=== PATIENT | female | born 1975 | race Caucasian/White ===

== ENCOUNTER → 2020-06-26 | Outpatient (CLI) | payer OTHER ==
--- NOTE | 2020-06-26 12:07 | ECHOF ---
Referral Reason:R06.02 SOB; R07.9 Chest pain R94.31 abn EKG MEASUREMENTS -------- HEIGHT: 175.3 cm WEIGHT: 70.3 kg BP: RVIDd: 3.6 cm (< 3.3) IVSd: 1.0 cm (0.6 - 1.1) LVIDd: 4.0 cm (3.9 - 5.3) LVPWd: 1.2 cm (0.6 - 1.1) IVSs: 1.3 cm LVIDs: 2.8 cm LVPWs: 1.7 cm LAESV Index (A-L): 17.64 ml/m Ao Diam: 2.8 cm (2.0 - 3.7) AV Cusp: 1.7 cm (1.5 - 2.6) MV EXCURSION: 15.225 mm (> 18.000) MV EF SLOPE: 97 mm/s (70 - 150) EPSS: 0.4 cm MV E Keron: 1.09 m/s MV DecT: 163 ms MV A Keron: 0.81 m/s MV E/A Ratio: 1.34 RAP: 5.00 mmHg RVSP: 27.67 mmHg FINDINGS -------- Sinus rhythm. This was a technically adequate study. The left ventricular size is normal. There is borderline concentric left ventricular hypertrophy. Overall left ventricular systolic function is normal with, an EF between 55 - 60 %. The diastolic filling pattern is normal for the age of the patient 10.79. The right ventricle is mildly enlarged. Normal LA size by volume 22+/-6 ml/m2. The right atrial size is normal. Interatrial and interventricular septum intact. The aortic valve is trileaflet, and appears structurally normal. No aortic stenosis or regurgitation. The mitral valve is normal. There is trace mitral regurgitation. Mild tricuspid regurgitation present. Right ventricular systolic pressure is normal at < 35 mmHg. The right ventricular systolic pressure, as measured by Doppler, is 27.67mmHg. There is no pulmonic regurgitation present. The aortic root size is normal. The inferior vena cava is mildly dilated. There is no pericardial effusion. CONCLUSIONS -------- 1. There is borderline concentric left ventricular hypertrophy. 2. Overall left ventricular systolic function is normal with, an EF between 55 - 60 %. 3. The diastolic filling pattern is normal for the age of the patient 10.79 4. The right ventricle is mildly enlarged. 5. Normal LA size by volume 22+/-6 ml/m2. 6. The aortic valve is trileaflet, and appears structurally normal. No aortic stenosis or regurgitati on. 7. There is trace mitral regurgitation. 8. Mild tricuspid regurgitation present. 9. The inferior vena cava is mildly dilated. 10. There is no pericardial effusion. HISTORIOGRAPHER: Lucretia Pereira RDCS
== END | disposition home or self-care (01) ==
LOC: RADECHMAIN 11:22
PROVIDERS: ATTEND Family Medicine
DX: I07.1 Rheumatic tricuspid insufficiency (principal)
CPT/HCPCS: 93306

== ENCOUNTER → 2021-12-07 | Outpatient (CLI) | payer OTHER ==
--- NOTE | 2021-12-07 14:18 | US ---
EXAMINATION TYPE: US thyroid st tissue head/neck DATE OF EXAM: 12/07/2021 COMPARISON: NONE CLINICAL HISTORY: R22.0 Swelling r side neck. GLAND SIZE: Right Lobe: 5.2 x 2.1 x 1.4 cm Overall Parenchyma: homogenous Left Lobe: cm Overall Parenchyma: 5.1 x 2.2 x1.9cm Isthmus Thickness: 0.6 cm NODULES RIGHT: # of nodules measured on right: 3 1. 0.7 X 0.5 x 0.8 cm, lower, solid or almost completely solid, hyperechoic nodule, which is wider than tall, with smooth margins, without echogenic foci. No prior 2. 0.7 X 0.5 x 0.9 cm, lower, solid or almost completely solid, hypoechoic nodule, which is wider t pritchard tall, with smooth margins, without echogenic foci. No prior 3. 0.6 X 0.4 x 0.6 cm, lower, solid or almost completely solid, isoechoic nodule, which is wider th an tall, with smooth calcified margins, without echogenic foci. No prior LEFT: # of nodules measured on left: 1. 1.4 X 0.8 x 1.4 cm, mid , solid or almost completely solid, isoechoic nodule, which is wider ana m n tall, with smooth margins, without echogenic foci. No prior ISTHMUS: # of nodules measured in the isthmus: 1 1. 0.8 X 0.4 x 0.8 cm solid or almost completely solid, isoechoic nodule, which is wider than tall, with smooth margins, without echogenic foci. No prior Bilateral neck scanned, no evidence of lymphadenopathy. IMPRESSION: Nonspecific thyroid nodularity.
--- NOTE | 2021-12-11 08:54 | MM ---
Reason for exam: screening (asymptomatic). Baseline mammogram. Physical Findings: Nurse did not find any significant physical abnormalities on exam. MG Screening Mammo w CAD Bilateral CC and MLO view(s) were taken. There are scattered fibroglandular densities. Right upper outer quadrant nodularity. Further evaluation recommended. ASSESSMENT: Incomplete: need additional imaging evaluation, BI-RAD 0 RECOMMENDATION: Special view mammogram of the right breast. (3D) If lesion persists on supplemental views, image directed ultrasound is recommended. [facility] will attempt to contact patient to return for supplemental views and ultrasound if indicated.
== END | disposition home or self-care (01) ==
LOC: RADUSWWP 13:35
PROVIDERS: ATTEND Family Medicine
DX: Z12.31 Encounter for screening mammogram for malignant neoplasm of breast (principal); E04.2 Nontoxic multinodular goiter
CPT/HCPCS: 76536; 77067

== ENCOUNTER → 2021-12-18 | Outpatient (CLI) | payer OTHER ==
--- NOTE | 2021-12-18 10:08 | MM ---
Reason for exam: additional evaluation requested from abnormal screening. Last mammogram was performed less than 1 month ago. History: Family history of breast cancer in maternal grandmother. Physical Findings: Breast exam preformed at baseline screening. MG 3D Work Up W/Cad RT Spot compression CC, spot compression MLO, and LM view(s) were taken of the right breast. Prior study comparison: December 07, 2021, bilateral MG screening mammo w CAD. The breast tissue is heterogeneously dense. This may lower the sensitivity of mammography. There is no discrete abnormality persists on additional views. These results were verbally communicated with the patient and result sheet given to the patient on 12/18/21. ASSESSMENT: Negative, BI-RAD 1 RECOMMENDATION: Return to routine screening mammogram schedule for both breasts.
== END | disposition home or self-care (01) ==
LOC: RADMAMWWP 08:49
PROVIDERS: ATTEND Family Medicine
DX: R92.2 Inconclusive mammogram (principal); Z80.3 Family history of malignant neoplasm of breast
CPT/HCPCS: 77065; G0279; 77061

== ENCOUNTER → 2023-07-14 | Outpatient (CLI) | payer OTHER ==
--- NOTE | 2023-07-14 12:19 | XR ---
EXAMINATION TYPE: XR chest 2V DATE OF EXAM: 07/14/2023 12:14 PM COMPARISON: None TECHNIQUE: XR chest 2V Frontal and lateral views of the chest. CLINICAL INDICATION:Female, 48 years old with history of R05.3 CHRONIC COUGH; FINDINGS: Lungs/Pleura: There is no evidence of pleural effusion, focal consolidation, or pneumothorax. Pulmonary vascularity: Unremarkable. Heart/mediastinum: Cardiomediastinal silhouette is unremarkable. Musculoskeletal: No acute osseous pathology. IMPRESSION: No acute cardiopulmonary disease/process.
== END | disposition home or self-care (01) ==
LOC: RADXRMAIN 12:05
PROVIDERS: ATTEND Family Medicine
DX: R05.3 Chronic cough (principal)
CPT/HCPCS: 71046

== ENCOUNTER 2024-09-24 08:38 | Day surgery (SDC) | payer OTHER ==
[~2024-09-24 08:38] MED LIST: HYDROmorphone 0.5 MG/0.5 ML SYRINGE IVP PRN; MIDAZOLAM 2 MG/2 ML VIAL IV PRN; Pre Op ABX Message 1 EACH MISC MISCELLANE ONE; SCOPOLAMINE 1 MG/72 HR PATCH TRANSDERM ONE
[2024-09-24] MEDS: IV FLUID CONTINUATION 1,000 ML IV ONE (09:15)
[2024-09-24] MEDS: ACETAMINOPHEN TAB 500 MG TAB PO PRN (09:19)
[2024-09-24] MEDS: ONDANSETRON 4 MG/2 ML VIAL IVP ONE (09:19)
[2024-09-24] MEDS: LACTATED RINGERS 1,000 ML IV SCH (09:19)
[2024-09-24] MEDS: DEXAMETHASONE SOD PHOSPHATE 4 MG/ML 1 ML VIAL IV ONE (09:20)
[2024-09-24] MEDS: HEPARIN SODIUM,PORCINE 5,000 UNIT/ML 1 ML VIAL SQ PRN (09:20)
--- NOTE | 2024-09-24 09:34 | P.GSHP ---
History of Present Illness H&P Date: 09/24/24 Chief Complaint: Colon cancer 49-year-old female here for Port-A-Cath placement. Patient to start chemotherapy in the next 1 to 2 weeks. Patient recently diagnosed with colon cancer metastatic to liver. She has not had a port previously. Past Medical History Past Medical History: Atrial Fibrillation Additional Past Medical History / Comment(s): colon CA with mets liver,dx May 2024-starting chemo-during colonoscopy punctured mass/bowel then transferred to [place] for remair,abdominal pain,b/p runs low History of Any Multi-Drug Resistant Organisms: None Reported Past Surgical History: Bowel Resection, Section Additional Past Surgical History / Comment(s): bowel resection in May 2024,colonoscopy,tubal preg Past Anesthesia/Blood Transfusion Reactions: No Reported Reaction Additional Past Anesthesia/Blood Transfusion Reaction / Comment(s): no hx blood transfusion Smoking Status: Former smoker - Past Family History Mother Family Medical History: No Reported History Medications and Allergies Home Medications Medication Instructions Recorded Confirmed Type Amiodarone HCl [Pacerone] 200 mg PO BID 09/22/24 09/22/24 History Apixaban [Eliquis] 5 mg PO BID 09/22/24 09/22/24 History HYDROcodone/APAP 10-325MG [[place] 1 tab PO Q4HR PRN 09/22/24 09/24/24 History 10-325] Metoclopramide HCl [Reglan] 10 mg PO BID 09/22/24 09/22/24 History Omeprazole 20 mg PO QAM 09/22/24 09/22/24 History Senna-Time 1 dose PO DAILY 09/22/24 09/22/24 History HYDROcodone/APAP 5-325MG [[place] 1 tab PO Q6HR PRN 3 Days #10 tab 09/24/24 Rx 5-325] Allergies Allergy/AdvReac Type Severity Reaction Status Date / Time No Known Allergies Allergy Verified 09/24/24 09:11 Surgical - Exam Vital Signs Temp Pulse Resp BP Pulse Ox 97.6 F 78 16 107/72 97 09/24/24 09:16 09/24/24 09:16 09/24/24 09:16 09/24/24 09:16 09/24/24 09:16 Physical exam: General: Thin appearing young female in no distress HEENT: Normocephalic, sclerae nonicteric Abdomen: Nontender, nondistended Extremities: No edema Neuro: Alert and oriented Assessment and Plan (1) Colon cancer Narrative/Plan: Will proceed with Port-A-Cath placement at this time. Risks of bleeding, infection, DVT, pneumothorax, catheter malfunction, anesthesia related complications were discussed. The patient understands and wishes to proceed. Current Visit: Yes Status: Acute Code(s): C18.9 - MALIGNANT NEOPLASM OF COLON, UNSPECIFIED SNOMED Code(s): 303089107
[2024-09-24] MEDS ORDERED: PHENYLEPHRINE-0.9% NACL SYG 1,000 MCG/10 ML SYRINGE ONE (09:42)
[2024-09-24] MEDS ORDERED: MIDAZOLAM 2 MG/2 ML VIAL ONE (09:42)
[2024-09-24] MEDS ORDERED: GLYCOPYRROLATE 0.2 MG/ML 2 ML VIAL ONE (09:42)
[2024-09-24] MEDS ORDERED: LIDOCAINE 1% INJ 10MG/ML (20 ML MDV) ONE (09:42)
[2024-09-24] MEDS ORDERED: fentaNYL (PF) 50 MCG/ML 2 ML AMP ONE (09:42)
[2024-09-24] MEDS ORDERED: ceFAZolin 1 GM/50 ML BAG (PMX) ONE (09:42)
[2024-09-24] MEDS ORDERED: PROPOFOL 10 MG/ML 20 ML VIAL IV ONE (09:42)
[2024-09-24] MEDS: SODIUM CHLORIDE 0.9% 50 ML with ceFAZolin 2,000 MG IV ONE (09:47)
[2024-09-24] MEDS: BUPIVACAINE (PF) 0.25% 30 ML VIAL SQ ONE ×2 (10:16)
[2024-09-24] MEDS ORDERED: ACETAMINOPHEN TAB 325 MG TAB PO PRN (10:43)
[2024-09-24] MEDS ORDERED: NALOXONE 0.4 MG/ML 1 ML VIAL IV PRN (10:43)
--- NOTE | 2024-09-24 10:47 | P.OP ---
Date of Procedure: 09/24/24 Procedure(s) Performed: PREOPERATIVE DIAGNOSIS: Colon cancer POSTOPERATIVE DIAGNOSIS: Same PROCEDURE: Port-A-Cath placement with fluoroscopic and ultrasound guidance SURGEON: Adal EBL: Minimal ANESTHESIA: General COMPLICATIONS: None OPERATIVE PROCEDURE: Patient was brought and placed on the operative table in the supine position. The patient was placed under general anesthesia at that time. The chest and neck were prepped and draped in usual sterile fashion. The ultrasound probe was used to identify the location of the right internal jugular vein. The skin was localized with lidocaine. The Seldinger needle was advanced into the IJ under ultrasound guidance. The wire was advanced through the needle under fluoroscopic guidance into the superior vena cava. A port pocket was created in the right infraclavicular location. The catheter was tunneled from the wire entrance site to the port pocket. The port was then connected to the catheter. The dilator introducer was threaded over the guidewire. The guidewire and dilator were then removed. The catheter was advanced through the introducer and introducer was then removed. The tip was seen to be in the right atrial junction via fluoroscopy. A picture of the radiograph showing the tip of the catheter was taken. Port was flushed with both saline and a Hep-Lock solution. There was good flow both in and out of the port. The port was sutured in underlying tissues using 3-0 silk sutures. The subcutaneous tissues were reapproximated using 3-0 Vicryl sutures and the skin at both locations using 4-0 Monocryl sutures. Skin glue and sterile dressings then applied. DISPOSITION: Stable to recovery room
[2024-09-24 10:51] VITALS: TEMP 97.1
--- NOTE | 2024-09-24 11:02 | FL ---
Fluoroscopy History: Port-A-Cath Insertion Port a cath insert with 3.3 sec fluoro time .0919 DAP 1 image saved LC/AB [facility], , 09/24/2024 11:00 AM
--- NOTE | 2024-09-24 11:10 | XR ---
EXAMINATION TYPE: XR chest 1V confirm line plcnh DATE OF EXAM: 09/24/2024 CLINICAL HISTORY: Line placement TECHNIQUE: Single frontal view of the chest is obtained. COMPARISON: 07/14/2023 FINDINGS: The port catheter with its distal tip overlying the SVC. No evidence for pneumothorax. Ther e is no focal air space opacity, pleural effusion, or pneumothorax seen. The cardiac silhouette size is within normal limits. The osseous structures are intact. IMPRESSION: No acute process. [facility], , 09/24/2024 11:07 AM
[2024-09-24] MEDS: LACTATED RINGERS 1,000 ML IV ONE (12:30)
[2024-09-24] MEDS: HYDROcodone/APAP 5-325MG 1 EACH TAB PO PRN (13:35)
[2024-09-24 14:43] VITALS: BP 94/64; PULSE 64; RESP 18
== END 2024-09-24 15:04 | disposition home or self-care (01) ==
LOC: OR 08:38
PROVIDERS: ATTEND Surgery
DX: C18.9 Malignant neoplasm of colon, unspecified (principal); C78.7 Secondary malignant neoplasm of liver and intrahepatic bile duct; I48.91 Unspecified atrial fibrillation; Z79.01 Long term (current) use of anticoagulants; Z87.891 Personal history of nicotine dependence; K21.9 Gastro-esophageal reflux disease without esophagitis
CPT/HCPCS: 77001; 36561; J1644; J1100; J2405; J0690; J1642; J0665; 81025

== ENCOUNTER → 2025-03-15 | Outpatient (CLI) | payer OTHER ==
[2025-03-15 15:00] LABS: Blood Urea Nitrogen 8 mg/dL (7-17)
[2025-03-15 15:01] LABS: African American GFR (CKD) >90 (>60 ml/min/1.73 sqM); Non-African American GFR(CKD) >90 (>60 ml/min/1.73 sqM)
--- NOTE | 2025-03-16 07:31 | CT ---
EXAMINATION TYPE: CT ChestAbdPelvis w con DATE OF EXAM: 03/15/2025 4:08 PM COMPARISON: 11/03/2024. CLINICAL INDICATION: Female, 49 years old with history of C18.9 MALIGNANT NEOPLASM OF COLON, UNSPECIF IED; PHH, COLON CA Technique: CT ChestAbdPelvis w con; Multiple axial images were obtained. Two-dimensional coronal and sagittal reconstructions were obtained. Contrast used:100 ml mL of Isovue 300 with IV Contrast, (None if empty) Oral contrast used: with Oral Contrast CT DLP: 848 mGycm, Automated exposure control for dose reduction was used. Findings: CHEST: LUNGS/ PLEURA: No focal consolidation, pneumothorax or pleural effusion. AIRWAY: Patent and unremarkable. HEART: Size within normal limits. No significant coronary artery calcifications. MEDIASTINUM: No gross evidence of adenopathy. VASCULATURE: No aortic aneurysm. No chest wall [id number] with tip terminating this. Vena cava. MUSCULOSKELETAL: No acute osseous abnormalities. Biconcave compression deformity of T7 with 50% heigh t loss. No significant retropulsion. SOFT TISSUES/LYMPH NODES: Unremarkable. LOWER NECK: No significant findings. ABDOMEN: ABDOMEN LIVER: Decrease in size in right lateral aspect lobe lesion now 14 mm there is a 24 mm. Stable possib le cyst in the left hepatic lobe. GALLBLADDER AND BILE DUCTS: Unremarkable. PANCREAS: Unremarkable. SPLEEN: Unremarkable. ADRENAL GLANDS: Unremarkable. KIDNEYS AND URETERS: No evidence of hydronephrosis or obstructing renal calculus. The ureters are unr emarkable. PELVIS BLADDER: Unremarkable REPRODUCTIVE: There are ovarian dominant follicle measuring 20 mm. left fundal uterine fibroid sugges montserrat measuring 18 mm. ABDOMEN & PELVIS STOMACH AND BOWEL: No evidence of bowel obstruction. Left lower quadrant ostomy present. PEG tube pre sent and in the gastric lumen. Moderate amount of feces in the colon. PERITONEUM/RETROPERITONEUM: No evidence of pneumoperitoneum or free fluid. VASCULATURE: No evidence of aortic aneurysm. MUSCULOSKELETAL: No acute osseous abnormalities LYMPH NODES: Few partially calcified lymph nodes are seen in the birdie hepatis. Lymph nodes have a si milar morphology and size to the prior CT 11/03/2024r the largest measuring 14 mm SOFT TISSUE/ABDOMINAL WALL: Unremarkable IMPRESSION: 1. Findings suggest positive response to therapy with similar personally calcified lymph nodes in th e birdie hepatis and decrease in size of right hepatic lobe lesion. No new or enlarging lymph nodes id entified. Findings suggest positive response to therapy. 2. PEG tube in appropriate position. 3. Vlizwd-r-Fhdv in appropriate position. 4. Left uterine fundal fibroid. 5. Biconcave compression deformity of T7 with 50% height loss. No significant retropulsion. [facility], , 03/16/2025 7:29 AM
== END | disposition home or self-care (01) ==
LOC: RADCTMAIN 14:09
PROVIDERS: ATTEND Internal Medicine
DX: C18.9 Malignant neoplasm of colon, unspecified (principal); D50.9 Iron deficiency anemia, unspecified; C78.7 Secondary malignant neoplasm of liver and intrahepatic bile duct; K57.92 Diverticulitis of intestine, part unspecified, without perforation or abscess without bleeding; Z71.3 Dietary counseling and surveillance; D25.9 Leiomyoma of uterus, unspecified; M48.54XA Collapsed vertebra, not elsewhere classified, thoracic region, initial encounter for fracture; Z93.1 Gastrostomy status
CPT/HCPCS: 82565; 84520; 71260; 74177; 36415; Q9967